=== PATIENT | female | born 1995 | race Caucasian/White ===

== ENCOUNTER → 2016-07-29 | Outpatient (CLI) | payer BC ==
[~2016-07-29] MED LIST: AUGMENTIN600 MG/5 M PO; DIFLUCAN150 MG PO; ORTHO NOVUM PO; PERCOCET 5-3251 EACH PO
== END ==
LOC: GLAB 16:12
DX: N92.6 Irregular menstruation, unspecified (principal)

== ENCOUNTER → 2016-09-19 | Outpatient (CLI) | payer BC, OTHER | END | disposition disaster alternative care site (69) | LOC: GRAD 14:57 | DX: N92.6 Irregular menstruation, unspecified (principal); N83.8 Other noninflammatory disorders of ovary, fallopian tube and broad ligament ==

== ENCOUNTER → 2016-09-30 | Outpatient (CLI) | payer BC, OTHER | END | disposition disaster alternative care site (69) | LOC: GLAB 08:44 | DX: N92.6 Irregular menstruation, unspecified (principal) ==

== ENCOUNTER 2016-10-08 19:44 | Emergency (ER) | payer BC, OTHER ==
--- NOTE | ~2016-10-08 | ER ---
PATIENT'S NAME: CHELY MANDUJANO [facility] AGE: 21 Y [address] ROOM: [place] [id number] LOCATION: [facility] ADMIT DATE: 10/08/2016 ER/Outpatient Report DISCHARGE DATE: 10/08/2016 FAMILY PHYSICIAN: PHYSICIAN, NO ATTENDING PHYSICIAN: Arthur Maldonado Time of Arrival: 2004 hours. Time of Evaluation: 2014 hours. CHIEF COMPLAINT: Left lower quadrant abdominal pain. HISTORY OF PRESENT ILLNESS: The patient states that she was seen yesterday at [facility] and diagnosed with possible ovarian cyst. She did go to [facility] and had an ultrasound done. She does have 2 cysts on the left and 1 on the right. She reports that she is seeing Dr. 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 She is scheduled to see Dr. Khan on Monday. She was given a prescription yesterday for hydrocodone, but the pain became much more intense tonight. She has been nauseated, but no vomiting. Has not had fever or chills. Has not had any pain or frequency with urination. Has had normal bowel movements. States her last period was 09/10/2016. ALLERGIES: SHE HAS NO KNOWN ALLERGIES. CURRENT MEDICATIONS: Include hydrocodone. PAST MEDICAL HISTORY: Ovarian cyst, kidney stones. PAST SURGICAL HISTORY: Appendectomy. SOCIAL HISTORY: She denies use of tobacco, drugs, or alcohol. She presents to the ER accompanied by her . REVIEW OF SYSTEMS: All negative other than those mentioned in the HPI. PHYSICAL EXAMINATION: VITAL SIGNS: She weighs 69.5 kg, blood pressure is 121/71, pulse of 101, PATIENT'S NAME: CHELY MANDUJANO [facility] AGE: 21 Y [address] ROOM: [place], [place] [address] LOCATION: [facility] ADMIT DATE: 10/08/2016 ER/Outpatient Report DISCHARGE DATE: 10/08/2016 FAMILY PHYSICIAN: PHYSICIAN, NO ATTENDING PHYSICIAN: Arthur Maldonado respirations 18, temperature of 98.3, O2 saturation 100% on room air. GENERAL: She is awake, alert, and oriented x4. SKIN: [place], warm, and dry. RESPIRATIONS: Even and nonlabored. Lung sounds are clear throughout. HEART: Regular rate and rhythm. ABDOMEN: Soft and nondistended. Bowel sounds are present. She is tender in the left lower quadrant. EMERGENCY DEPARTMENT COURSE: Saline lock was initiated. Fluids of normal saline were started at a wide- open rate. She was given Zofran 4 mg IV and morphine 2 mg IV. LABORATORY DATA AND X-RAYS: Lab work was drawn. CBC is within normal limits. Chem Panel: Sodium is 140, potassium 3.5, and chloride is 109. Her serum HCG is negative. Clean-catch UA was obtained. It is negative. Leukocytes negative. Nitrites on micro does have contamination with many epithelial cells. Pain was relieved with the fluids and the morphine. We did give her Percocet 5/325 x1 tablet. She states she was feeling better. Ultrasound was completed. Ultrasound reports the patient has good blood flow. She does have 2 ovarian cysts on the left and 1 on the right. The ones on the left are measuring 8 cm and greater than 5 cm and then the one on the right is measuring approximately 7 cm. ASSESSMENT: Pain decreased with Morphine. IMPRESSION: Ovarian cyst and left lower quadrant abdominal pain. PLAN: Home, rest, fluids. Prescription was written for Percocet. She is to follow up with Dr. Sousa on Monday as scheduled. I did write her a note to excuse her from work, so, she could stay in a cool place and drink plenty of fluids. She is welcome to return to the ER if symptoms warrant before Monday. She verbalizes understanding. KALEN PEDERSEN APRN FOR MD BILL DOMINIQUE/nilay /[id number] d: 10/08/169 t: 10/10/161815, OUTPATIENT REPORT
[2016-10-08 20:32] LABS: BASOPHIL # 0.1 K/uL (0.0-0.2); EOSINOPHIL # 0.2 K/uL (0.0-0.5); EOSINOPHIL % 1.9 %; HEMATOCRIT 40.7 % (33.0-46.0); HEMOGLOBIN 13.8 g/dL (11.0-15.0); IMMATURE GRANULOCYTE # 0.1 K/uL (0.0-0.3); IMMATURE GRANULOCYTE % 0.8 %; LYMPHOCYTE # 3.4 K/uL (0.8-4.0); LYMPHOCYTE % 35.3 %; MCH 29.9 pg (27.0-34.0); MCHC 33.9 gm/dL (32.0-36.5); MCV 88.3 fl (83.0-98.0); MONOCYTE # 0.7 K/uL (0.0-1.0); MPV 8.9 fl (9.4-12.4); NEUTROPHIL # (ANC) 5.2 K/uL (1.8-7.8); NRBC % 0 /100WBC (0-0.00); PLATELET COUNT 274 K/uL (150-450); RBC 4.61 M/uL (3.50-5.00); RDW-CV 12.3 % (11.9-14.6); WBC 9.6 K/uL (4.0-11.0)
[2016-10-08 20:49] LABS: ALBUMIN 3.5 gm/dL (3.5-5.0); ALK PHOS 65 IU/L (33-138); ALT 20 IU/L (12-78); ANION GAP 10.5 (10.0-19.0); AST 18 IU/L (10-40); BLOOD UREA NITROGEN 7 mg/dL (6-24); CALCIUM 8.2 mg/dL (8.5-10.5); CHLORIDE 109 mMol/L (96-110); CO2 24 mMol/L (22-32); CREATININE 0.9 mg/dL (0.5-1.1); ESTIMATED GFR (MDRD EQUATION) > 60; POTASSIUM 3.5 mMol/L (3.7-5.1); SODIUM 140 mMol/L (135-145); TOTAL BILIRUBIN 0.3 mg/dL (0.0-1.5); TOTAL PROTEIN 6.8 g/dL (6.0-8.4)
[2016-10-08 21:03] LABS: BILIRUBIN URINE NEGATIVE (NEGATIVE); BLOOD URINE NEGATIVE /UL (NEGATIVE); COLOR URINE YELLOW (YELLOW); GLUCOSE URINE NEGATIVE (NEGATIVE); KETONE URINE NEGATIVE (NEGATIVE); LEUKOCYTES URINE NEGATIVE /UL (NEGATIVE); NITRITE URINE NEGATIVE (NEGATIVE); PROTEIN URINE NEGATIVE (NEGATIVE); TURBIDITY URINE 1+ (CLEAR); UROBILINOGEN URINE NORMAL (NORMAL)
[2016-10-08 21:16] LABS: BACTERIA URINE MANY (NEGATIVE); EPITHELIAL URINE FULL FIELD #/HPF (NEGATIVE); RBC URINE 0-2 #/HPF (NEGATIVE)
[2016-10-14] MEDS ORDERED: PERCOCET 5-3251 EACH PO (15:32)
[2016-10-14] MEDS ORDERED: ORTHO NOVUM PO (15:33)
[2016-10-14] MEDS ORDERED: AUGMENTIN600 MG/5 M PO (15:33)
[2016-10-18] MEDS ORDERED: DIFLUCAN150 MG PO (10:09)
== END 2016-10-08 23:04 | disposition disaster alternative care site (69) ==
LOC: GMED 19:44
PROVIDERS: Nurse Practitioner Family
DX: N83.202 Unspecified ovarian cyst, left side (principal); N83.201 Unspecified ovarian cyst, right side; Z90.49 Acquired absence of other specified parts of digestive tract; Z87.442 Personal history of urinary calculi
CPT/HCPCS: J2270; J2405; J7030

== ENCOUNTER 2016-10-11 04:11 | Emergency (ER) | payer BC, OTHER ==
--- NOTE | ~2016-10-11 | ER ---
PATIENT'S NAME: CHELY ROBERTSON [facility] AGE: 21 Y [address] ROOM: [place] [address] LOCATION: ED ADMIT DATE: 10/11/2016 ER/Outpatient Report DISCHARGE DATE: 10/11/2016 FAMILY PHYSICIAN: Zane Bacon MD ATTENDING PHYSICIAN: Arthur Maldonado Chely Robertson is 21-year-old female patient, who had seen Dr. Mays this morning. I assumed care at shift change as we are awaiting an ultrasound result. History was reviewed. The patient's pain is starting to come back and she required some IV fentanyl. Ultrasound revealed stable overall ultrasound since 10/08, large bilateral ovarian cyst measuring up to 7 cm. Good blood flow to the ovaries with no evidence of torsion. The patient is frustrated with this recurrent pain, so did contact Dr. Kearney, naval designer virtualization engineer. Dr. Man, her naval designer here in [facility] evaluated her in the emergency room. She will continue her present meds at home, which include Percocet and she will follow up with Dr. Sousa later today. ARASH DEAN MD CAR/modl /[id number] d: 10/11/16 2343 t: 10/23/16 0833, OUTPATIENT REPORT
--- NOTE | ~2016-10-11 | HP ---
PATIENT'S NAME: CHELY MANDUJANO [facility] AGE: 21 Y [address] ROOM: [place] [address] LOCATION: [facility] ADMIT DATE: 10/11/2016 History & Physical DISCHARGE DATE: 10/11/2016 FAMILY PHYSICIAN: Zane Bacon MD ATTENDING PHYSICIAN: Arthur Maldonado DATE OF SERVICE: 10/11/2016 CHIEF COMPLAINT: Abdominal pain. HISTORY OF PRESENT ILLNESS: This is a 21-year-old 0 female who is currently undergoing Clomid therapy by Dr. Sousa in [place]. She has had bilateral ovarian cysts after this cycle of Clomid. She only received 50 mg of Clomid, but did get hyperstimulated, which is unusual. She has bilateral ovarian cysts, which has been anywhere from 6-8 cm on both sides. She saw him in his office and he placed the patient on control pills for suppression and pain pills. She came into the ER once last week and then came in again today. These cysts are stable in nature. The cyst in the right ovary is 6.4 x 6.8 x 5.1 and the left ovary 7.7 x 8.6 x 4.6. Both ovaries have blood flow demonstrated. She is tearful. She says she cannot take it anymore and she right now is very angry and has been quite difficult with the ER physician. OBJECTIVE: VITAL SIGNS: Stable. She is afebrile. GENERAL: She is alert and oriented, appears tearful. ABDOMEN: Soft, slightly tender, nondistended. LABORATORY DATA: No new laboratory data performed today. ASSESSMENT: Ovarian hyperstimulation with bilateral ovarian cysts. No evidence of torsion. PLAN: I explained to the patient that I agree with Dr. Sousa's plan of doing the oral contraceptive pills with pain control. However, she feels like she cannot take it anymore. Then, the next option would be to take her to the operating room and drain the cysts laparoscopically. Typically, we do not drain cysts unless we know their origin, but I feel like since we know that she got these from Clomid, it would be safe to just drain them. She would rather call Dr. Sousa this morning and see what his opinion was and then call me back and see if she would like anything further done. PATIENT'S NAME: CHELY MANDUJANO [facility] AGE: 21 Y [address] ROOM: [place] [address] LOCATION: [facility] ADMIT DATE: 10/11/2016 History & Physical DISCHARGE DATE: 10/11/2016 FAMILY PHYSICIAN: Zane Bacon MD ATTENDING PHYSICIAN: Arthur Maldonado DIANE MD KAMILLE BYRNES/nilay /[id number] D: [id number] T: [id number] HISTORY & PHYSICAL
--- NOTE | ~2016-10-11 | ER ---
PATIENT'S NAME: CHELY MANDUJANO [facility] AGE: 21 Y [address] ROOM: [place] [address] LOCATION: [facility] ADMIT DATE: 10/11/2016 ER/Outpatient Report DISCHARGE DATE: 10/11/2016 FAMILY PHYSICIAN: Zane Bacon MD ATTENDING PHYSICIAN: Arthur Maldonado Admission date and time documented on the medical record. I saw the patient at 0430 hours. CHIEF COMPLAINT: Lower abdominal pain. HISTORY OF PRESENT ILLNESS: The patient is a 21-year-old female, who presented to the emergency room with complaints of lower abdominal pain worse in the left lower quadrant. Crampy, sharp in nature. She is known to have ovarian cysts secondary to Clomid stimulation for fertility. She did see her night shift supervisor in [place] on Monday. He told her that if she had more pain that she needed to come in to make sure she did not have a torsion of the ovarian cysts or torsion of her ovary. She has had some nausea, but no vomiting, no diarrhea, no chest pain, shortness of breath. No headache, eyes, ears, nose, throat, neck, or spine pain. No fall or trauma. No recent colds, coughs, flus, fever, chills, or sweats. No lightheadedness, dizziness, syncope, or near syncope. No joint or muscle swelling, redness, or pain. No skin eruptions or rash. No history of neuro changes, psych issues, or endocrine problems. HOME MEDICATIONS: See the attached medication list. ALLERGIES: NONE. SOCIAL HISTORY: Nonsmoker and nondrinker. SIGNIFICANT PAST MEDICAL HISTORY: Nephrolithiasis, ovarian cysts. OPERATIONS: Appendectomy and cystoscopy with stent placement. REVIEW OF SYSTEMS: All systems reviewed by me are negative with the exception of those discussed in the history of present illness. PATIENT'S NAME: CHELY MANDUJANO [facility] AGE: 21 Y [address] ROOM: [place] [address] LOCATION: [facility] ADMIT DATE: 10/11/2016 ER/Outpatient Report DISCHARGE DATE: 10/11/2016 FAMILY PHYSICIAN: Zane Bacon MD ATTENDING PHYSICIAN: Arthur Maldonado PHYSICAL EXAMINATION: VITAL SIGNS: Temperature 98.1, pulse 108, respirations 16, and blood pressure 131/73. HEAD: Normocephalic. EYES, EARS, NOSE, THROAT: Clear. Mucous membranes are moist. NECK: No nuchal rigidity. No thyromegaly or cervical adenopathy. LUNGS: Clear. Good air flow. No rales, rhonchi, or wheezes. HEART: Regular. Pulses are palpable. CHEST: No ribcage or abnormalities of the chest wall. ABDOMEN: Soft, flat, tender in the lower abdomen, worse in the left lower quadrant. Minimal guarding if any. Bowel tones are present. No organomegaly or abnormal masses palpable. No CVA tenderness. EXTREMITIES: Intact. NEUROVASCULAR: Intact. SKIN: Clear. No skin eruptions or rash. LABORATORY DATA: I did order a pelvic ultrasound. Results are pending. IMPRESSION: Lower abdominal pain, worse in the left lower quadrant. The patient has known ovarian cyst. Need to rule out ovarian or ovarian cyst torsion. PLAN: I did transfer the patient's care over to Dr. Irene at shift change. I asked Dr. Irene to follow up with the patient's ultrasound of the pelvis results, final diagnosis, and treatment plan. MD ROQUE DOMINIQUE/modl /[id number] d: 10/14/1615 t: 10/15/16 0613, OUTPATIENT REPORT
[2016-10-14] MEDS ORDERED: PERCOCET 5-3251 EACH PO (15:32)
[2016-10-14] MEDS ORDERED: ORTHO NOVUM PO (15:33)
[2016-10-14] MEDS ORDERED: AUGMENTIN600 MG/5 M PO (15:33)
[2016-10-18] MEDS ORDERED: DIFLUCAN150 MG PO (10:09)
== END 2016-10-11 07:44 | disposition disaster alternative care site (69) ==
LOC: GMED 04:11
DX: N98.1 Hyperstimulation of ovaries (principal); N83.202 Unspecified ovarian cyst, left side; N83.201 Unspecified ovarian cyst, right side; Z90.49 Acquired absence of other specified parts of digestive tract; Z98.890 Other specified postprocedural states; Z79.899 Other long term (current) drug therapy
CPT/HCPCS: J1885; J2300; J2405; J2550; J3010

== ENCOUNTER → 2016-10-18 | Day surgery (SDC) | payer BC, OTHER ==
[~2016-10-18] VITALS: Ht 180.3 cm; Wt 69.9 kg
--- NOTE | ~2016-10-18 | OR ---
PATIENT'S NAME: CHELY MANDUJANO [facility] AGE: 21 Y [address] ROOM: [place] [address] LOCATION: [facility] ADMIT DATE: 10/18/2016 OR/Procedure Report DISCHARGE DATE: FAMILY PHYSICIAN: PHYSICIAN, NO ATTENDING PHYSICIAN: Carmen Man SURGEON: Carmen Man MD ASSISTANT PROFESSOR OF LIFE SCIENCES: DATE OF PROCEDURE: 10/18/2016 PREOPERATIVE DIAGNOSES: 1. Bilateral ovarian cysts. 2. History of infertility and polycystic ovarian syndrome. POSTOPERATIVE DIAGNOSES: 1. Bilateral ovarian cysts. 2. History of infertility and polycystic ovarian syndrome. 3. Endometriosis. PROCEDURES PERFORMED: 1. Laparoscopic bilateral ovarian cystectomies. 2. Fulguration of endometrial implants. ESTIMATED BLOOD LOSS: 10 mL. FINDINGS: Bilateral simple-appearing ovarian cysts with clear fluid, each approximately 7 cm. Normal-appearing tubes. Normal uterus. Diffuse endometrial implants in the posterior cul-de-sac. INDICATIONS: This patient is a 21-year-old 0 female who has been treated for infertility with Clomid. She only received 50 mg of Clomid once by another physician, but as a result, had 2 large ovarian cysts which were causing her quite a bit of pain. She went on oral contraceptive pills, but got impatient because she was feeling so uncomfortable and, therefore, opted for surgery. Prior to the procedure, the risks, benefits, and alternatives to the procedure were discussed with the patient. She understood the risks to be, but not to be limited to bleeding; infection; and damage to the bowel, bladder, ureter, and surrounding organs and desired to proceed. DESCRIPTION OF PROCEDURE: The patient was taken to the operating room where anesthesia was found to be adequate. She was prepped and draped in a dorsal lithotomy position, and a time-out was performed. A weighted speculum was placed in the vagina, and the anterior lip of the cervix was grasped with a fine-toothed tenaculum. The uterine manipulator was placed, and the tenaculum was removed. The surgeon's gloves were changed. Attention was turned to the patient's abdomen. Local anesthesia was used at the infraumbilical area. A PATIENT'S NAME: CHELY MANDUJANO [facility] AGE: 21 Y [address] ROOM: [place], [place] [address] LOCATION: [facility] ADMIT DATE: 10/18/2016 OR/Procedure Report DISCHARGE DATE: FAMILY PHYSICIAN: PHYSICIAN, NO ATTENDING PHYSICIAN: Carmen Man 10 mm skin incision was made. The Veress needle was introduced at a 45-degree angle while tenting the abdominal wall. Intraperitoneal placement was confirmed with a drop in pressure with insufflation of CO2 gas. The 10 mm trocar was introduced, and the scope was introduced. The abdomen was surveyed. There was noted to be bilateral ovarian cysts as above described as well as some posterior cul-de-sac endometrial implants. Two lateral 5 mm ports were placed after incision and injection with Marcaine. They were placed under direct visualization. Using the atraumatic grasper, the tube and ovary were manipulated, and the left cyst was brought into view. The hooked cautery was then used to incise the cyst and drain it of all fluids. A large incision was made to ensure that the cyst did not re-form. I was unable to dissect out any cyst wall is it seemed to adhere to the ovary. This was done in an identical fashion on the right cyst. Hemostasis was again noted. Cautery was then used to cauterize the endometrial implants in the posterior cul-de-sac. There was not any scar tissue noted, just a small handful of endometrial implants. The abdomen was then again surveyed. The trocars were removed under direct visualization. The air was removed as best as possible. The skin was closed with 4-0 Vicryl suture, and Steri-Strips were placed. COMPLICATIONS: None. CONDITION: The patient is stable in room. MD KAMILLE DAVILA/nilay /[id number] d: 10/18/16 1833 t: 10/25/16 1054, OPERATIVE SUMMARY
[2016-10-18 06:47] LABS: BASOPHIL # 0.1 K/uL (0.0-0.2); BASOPHIL % 1.1 %; EOSINOPHIL # 0.2 K/uL (0.0-0.5); EOSINOPHIL % 2.1 %; HEMATOCRIT 41.8 % (33.0-46.0); HEMOGLOBIN 14.1 g/dL (11.0-15.0); IMMATURE GRANULOCYTE % 0.5 %; LYMPHOCYTE # 2.8 K/uL (0.8-4.0); LYMPHOCYTE % 32.5 %; MCH 30.1 pg (27.0-34.0); MCHC 33.7 gm/dL (32.0-36.5); MCV 89.1 fl (83.0-98.0); MONOCYTE # 0.7 K/uL (0.0-1.0); MONOCYTE % 8.2 %; MPV 9.2 fl (9.4-12.4); NEUTROPHIL # (ANC) 4.7 K/uL (1.8-7.8); NEUTROPHIL % 55.6 %; NRBC % 0 /100WBC (0-0.00); PLATELET COUNT 320 K/uL (150-450); RBC 4.69 M/uL (3.50-5.00); RDW-CV 12.2 % (11.9-14.6); WBC 8.5 K/uL (4.0-11.0)
== END | disposition disaster alternative care site (69) ==
LOC: GPOC 10-14 14:00 → GSDC 06:00
PROVIDERS: Obstetrics & Gynecology
PROC: 0UB24ZZ Excision of Bilateral Ovaries, Percutaneous Endoscopic Approach (ICD-10-PCS; principal; 2016-10-18)
DX: N83.201 Unspecified ovarian cyst, right side (principal); N83.202 Unspecified ovarian cyst, left side; N80.9 Endometriosis, unspecified; K21.9 Gastro-esophageal reflux disease without esophagitis; F41.9 Anxiety disorder, unspecified; F32.9 Major depressive disorder, single episode, unspecified; Z90.49 Acquired absence of other specified parts of digestive tract; Z98.890 Other specified postprocedural states
CPT/HCPCS: J1100; J2001; J2250; J2405; J2550; J3010; J7120